=== PATIENT | female | born 2000 | race Two or more races ===

== ENCOUNTER 2024-01-12 13:57 | Emergency (ER) | payer MEDICAID, OTHER ==
[~2024-01-12] VITALS: Ht 152.4 cm; Wt 68.3 kg
[2024-01-12 14:40] LABS: Basophils # (auto) 0 10 ^3/uL (0-0.2); Basophils % (auto) 0.3 % (0.0-2.0); Eosinophils # (auto) 0.1 10 ^3/uL (0-0.8); Eosinophils % (auto) 1.2 % (0.0-7.0); Hematocrit 42.4 % (36.0-46.0); Hemoglobin 14.6 g/dL (12.2-16.2); Lymphocytes # (auto) 1.9 10 ^3/uL (0.4-5.4); Lymphocytes % (auto) 18.7 % (10.0-50.0); Mean Corpuscular Hemoglobin 30.4 pg (28.0-32.0); Mean Corpuscular Hgb Conc. 34.5 g/dL (32.0-36.0); Mean Corpuscular Volume 88.1 fL (80.0-100.0); Monocytes # (auto) 0.7 10 ^3/uL (0-1.3); Monocytes % (auto) 7.2 % (0.0-12.0); Neutrophils # (auto) 7.2 10 ^3/uL (1.6-8.6); Neutrophils % (auto) 72.6 % (37.0-80.0); Nucleated Red Blood Cells % 0.1 %; Red Blood Cells 4.81 10^6/uL (4.0-5.20); Red Cell Distribution Width 13.1 % (11.8-14.3)
[2024-01-12 15:03] LABS: Alanine Aminotransferase 15 U/L (7-40); Albumin 4.7 g/dL (3.2-4.8); Alkaline Phosphatase 101 U/L (46-116); Anion Gap 10 (5-15); Aspartate Aminotransferase 12 U/L (13-40); BUN/Creatinine Ratio 12.3 (10.0-20.0); Bilirubin, Total 0.5 mg/dL (0.2-1.0); Blood Urea Nitrogen 9 mg/dL (9-23); Calcium 9.5 mg/dL (8.7-10.4); Carbon Dioxide 26 mmol/L (20-30); Chloride 105 mmol/L (98-107); Glucose 90 mg/dL (74-106); Lipase 32 U/L (12-53); Potassium 4.2 mmol/L (3.5-5.1); Sodium 141 mmol/L (136-145); Total Protein 7.4 g/dL (5.7-8.2)
[2024-01-12 15:21] LABS: Urine Bacteria FEW /hpf (None Seen); Urine Blood 2+ /uL (Negative); Urine Budding Yeast FEW /hpf (None Seen); Urine Clarity Turbid (Clear); Urine Color Yellow (Yellow); Urine Mucus FEW (None Seen); Urine Protein, UAD 1+ (Negative); Urine Specific Gravity 1.029 (1.001-1.035); Urine Urobilinogen Normal (Negative); Urine WBC 110 /hpf (0 - 5); Urine pH 5.5 (5.0-9.0)
[2024-01-12 15:31] LABS: Amphetamine Screen, Urine Neg (NEGATIVE)
[2024-01-12 15:32] LABS: Barbiturate Scree,Urine Neg (NEGATIVE); Benzodiazephine Screen, Urine Neg (NEGATIVE); Cocaine Screen, Urine Neg (NEGATIVE); Opiate Scree,Urine Neg (NEGATIVE); Phencyclidine Screen, Urine Neg (NEGATIVE)
[2024-01-12 15:33] LABS: Cannabinoid Screen, Urine Pos (NEGATIVE)
[2024-01-12 17:00] VITALS: PULSE 69; RESP 16; O2SAT 98
[2024-01-12] MEDS: CIPROFLOXACIN HCL 500 MG TAB PO ONE (17:23)
[2024-01-12] MEDS: cefTRIAXone 1GM/50ML D5W 50 ML IV ONE (17:24)
[2024-01-12] MEDS: metroNIDAZOLE 500MG/100ML 100 ML IV ONE (17:42)
[2024-01-12] MEDS ORDERED: CIPR-173 PO (20:15)
[2024-01-12] MEDS ORDERED: METR-344 PO (20:15)
[2024-01-12 20:29] VITALS: BP 103/70; PULSE 76; RESP 19; TEMP 98; O2SAT 98
== END 2024-01-12 20:30 | disposition home or self-care (01) ==
LOC: ER 13:57
DX: K52.9 Noninfective gastroenteritis and colitis, unspecified (principal); R10.2 Pelvic and perineal pain; N83.202 Unspecified ovarian cyst, left side; N39.0 Urinary tract infection, site not specified; Z79.899 Other long term (current) drug therapy; Z32.02 Encounter for pregnancy test, result negative
CPT/HCPCS: 36415; 74176; 76830; 76856; 80053; 80307; 81001; 81025; 83605; 83690; 84484; 84702; 85025; 96365; 96368; 99285; J0696; J3490